=== PATIENT | male | born 1950 | race Caucasian/White ===

== ENCOUNTER → 2017-04-15 | Outpatient (CLI) | payer MEDICARE ==
[~2017-04-15] MED LIST: ASPI-COR81 M1 PO; COUMADIN 5MG TAB5 MG PO; COUMADIN 7.5MG7.5 MG PO; DAILY VITE1 TA2 PO; FLOMAX 0.4MG C0.4 MG PO; GLUCOSAMINE & C1 CA1 PO; MEDROL 4MG. DOSE4 MG PO; OPTIMUM VITAMIN1 TAB SL; RAPAFLO4 MG PO; TRICOR 145 MG145 MG PO; VICODIN 5/500 T1 TAB PO; ZESTRIL 5MG TABL5 MG PO
== END ==
LOC: ACC 08:00
DX: Z86.718 Personal history of other venous thrombosis and embolism (principal); Z79.01 Long term (current) use of anticoagulants; Z51.81 Encounter for therapeutic drug level monitoring
CPT/HCPCS: G0463

== ENCOUNTER 2017-08-17 14:50 | Outpatient (CLI) | payer MEDICARE ==
[~2017-08-17 14:50] MED LIST changes: +COUMADIN 2.5MG2.5 MG PO; +INDERAL40 MG PO; +MUPIROCIN 2% O1 INC1 TP; +OMNICEF 300 MG300 MG PO
== END 2017-08-17 16:00 ==
LOC: ACC 14:50
DX: Z86.718 Personal history of other venous thrombosis and embolism (principal); Z79.01 Long term (current) use of anticoagulants; Z51.81 Encounter for therapeutic drug level monitoring
CPT/HCPCS: G0463

== ENCOUNTER 2017-09-13 08:03 | Outpatient (CLI) | payer MEDICARE | END 2017-09-13 14:53 | LOC: ACC 08:03 | DX: Z86.718 Personal history of other venous thrombosis and embolism (principal); Z79.01 Long term (current) use of anticoagulants; Z51.81 Encounter for therapeutic drug level monitoring | CPT/HCPCS: G0463 ==

== ENCOUNTER 2017-10-25 08:07 | Outpatient (CLI) | payer MEDICARE | END 2017-10-25 13:49 | LOC: ACC 08:07 | DX: Z86.718 Personal history of other venous thrombosis and embolism (principal); Z79.01 Long term (current) use of anticoagulants; Z51.81 Encounter for therapeutic drug level monitoring | CPT/HCPCS: G0463 ==